=== PATIENT | male | born 1985 | race Two or more races ===

== ENCOUNTER 2017-07-27 11:53 | Emergency (ER) | payer MEDICAID ==
[~2017-07-27] VITALS: Ht 177.8 cm; Wt 83.9 kg
[2017-07-27 11:53] VITALS: BP 126/86
[2017-07-27] MEDS ORDERED: CYCLOBENZAPRINE 10 MG TABLET ONE (12:27)
[2017-07-27] MEDS ORDERED: KETOROLAC TROMETHAMINE INJ 30 MG/ML VIAL ONE (12:27)
[2017-07-27] MEDS ORDERED: oxyCODONE/APAP (5/325 MG) 1 UDTAB TABLET ONE (12:27)
[2017-07-27] MEDS ORDERED: ONDANSETRON 4 MG TAB.RAPDIS ONE (12:27)
[2017-07-27] MEDS ORDERED: oxyCODONE/APAP (5/325 MG) 1 UDTAB TABLET PO ONE (12:30)
[2017-07-27] MEDS ORDERED: ONDANSETRON 4 MG TAB.RAPDIS SL ONE (12:30)
[2017-07-27] MEDS ORDERED: KETOROLAC TROMETHAMINE INJ 60 MG/2 ML VIAL IM ONE (12:30)
[2017-07-27] MEDS ORDERED: CYCLOBENZAPRINE 10 MG TABLET PO ONE (12:30)
== END 2017-07-27 13:22 | disposition home or self-care (01) ==
LOC: ER 11:58
DX: S16.1XXA Strain of muscle, fascia and tendon at neck level, initial encounter (principal); F17.200 Nicotine dependence, unspecified, uncomplicated; X58.XXXA Exposure to other specified factors, initial encounter; Y93.89 Activity, other specified; Y92.89 Other specified places as the place of occurrence of the external cause; Y99.8 Other external cause status
CPT/HCPCS: 96372; 99283; A4606; J1885; Q0162; Z7610